=== PATIENT | male | born 1990 ===

== ENCOUNTER 2017-06-16 15:47 | Emergency (ER) | payer OTHER ==
[2017-06-16 16:25] VITALS: BP 136/79; PULSE 104; RESP 16; TEMP 98.9; O2SAT 98
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
== END 2017-06-16 18:29 | disposition home or self-care (01) ==
LOC: H.ER 15:47
DX: S43.401A Unspecified sprain of right shoulder joint, initial encounter (principal); V43.62XA Car passenger injured in collision with other type car in traffic accident, initial encounter; Y92.410 Unspecified street and highway as the place of occurrence of the external cause